=== PATIENT | male | born 1965 | race Caucasian/White ===

== ENCOUNTER 2017-09-09 08:16 | Emergency (ER) | payer BC ==
[2017-09-09 08:33] VITALS: BP 142/82
--- NOTE | 2017-09-09 09:03 | UC ---
Skin Complaint HPI - HPI Summary HPI Summary: tick bite lower abdominal wall x 1 day tick was removed by the pt. no fever, no chills, no joint pain and no rash - History of Current Complaint Chief Complaint: UCGeneralIllness Time Seen by Provider: 09/09/17 08:57 Stated Complaint: TICK BITE Hx Obtained From: Patient Onset/Duration: Gradual Onset, Lasting Days - 1, Resolved Timing: Constant Onset Severity: Mild Current Severity: None Pain Intensity: 0 Location: Other - lower abd Aggravating Factor(s): Nothing Alleviating Factor(s): Nothing Associated Signs & Symptoms: Positive: Negative - Allergy/Home Medications Allergies/Adverse Reactions: Allergies Allergy/AdvReac Type Severity Reaction Status Date / Time No Known Allergies Allergy Verified 09/09/17 08:29 Review of Systems Constitutional: Negative Skin: Negative Eyes: Negative ENT: Negative Respiratory: Negative Cardiovascular: Negative Is Patient Immunocompromised?: No All Other Systems Reviewed And Are Negative: Yes PMH/Surg Hx/FS Hx/Imm Hx Previously Healthy: Yes - Surgical History Surgical History: Yes Surgery Procedure, Year, and Place: eyelid surgery - Family History Known Family History: Positive: Cardiac Disease, Hypertension Negative: Diabetes - Social History Alcohol Use: Rare Substance Use Type: None Smoking Status (MU): Never Smoked Tobacco Physical Exam Triage Information Reviewed: Yes Appearance: Well-Appearing, No Pain Distress, Well-Nourished Vital Signs: Initial Vital Signs Temp 98.1 F 09/09/17 08:25 Pulse 67 09/09/17 08:25 Resp 14 09/09/17 08:25 BP 142/82 09/09/17 08:25 Pulse Ox 99 09/09/17 08:25 Vital Signs Reviewed: Yes Eyes: Positive: Conjunctiva Clear ENT Exam: Normal ENT: Positive: Normal ENT inspection, Hearing grossly normal, Pharynx normal, Pharyngeal erythema Neck: Positive: Supple, Nontender, No Lymphadenopathy Respiratory: Positive: Chest non-tender, Lungs clear, Normal breath sounds Cardiovascular: Positive: RRR, No Murmur, Pulses Normal Skin: Positive: Other - tick was remvoved by the pt. for the lower abdominal area Course/Dx - Diagnoses Provider Diagnoses: tick bite abdominal wall Discharge - Sign-Out/Discharge Documenting (check all that apply): Discharge/Admit/Transfer - Discharge Plan Condition: Stable Disposition: HOME Prescriptions: DOXYcycline CAP(*) [DOXYcycline 100MG CAP(*)] 2 cap PO DAILY #2 cap Patient Education Materials: Tick Bite (ED) Referrals: Mohinder BALES,Jojo Jacobo [Primary Care Provider] - If Needed - Billing Disposition and Condition Condition: STABLE Disposition: Home
== END 2017-09-09 09:04 | disposition home or self-care (01) ==
LOC: UCCORT 08:16
DX: S30.861A Insect bite (nonvenomous) of abdominal wall, initial encounter (principal); W57.XXXA Bitten or stung by nonvenomous insect and other nonvenomous arthropods, initial encounter; Y92.9 Unspecified place or not applicable
CPT/HCPCS: 99212; G0463